=== PATIENT | female | born 1950 | race Asian ===

== ENCOUNTER → 2024-01-13 08:25 | Outpatient (REF) | payer MEDICARE, OTHER, SELFPAY ==
[2024-01-13 08:56] LABS: % Basophils 0.3 % (0-2); % Eosinophils 1.8 % (0-6); % Immature Granulocytes 0.4 % (0-0.5); % Lymphocytes 39.4 % (20.5-51.1); % Monocytes 7.8 % (1.7-9.3); % Neutrophils 50.3 % (42.2-75.2); Absolute Eosinophils 0.1 10^3/uL (0-0.7); Absolute Lymphocytes 2.8 10^3/uL (1.2-3.4); Absolute Monocytes 0.6 10^3/uL (0.1-0.6); Absolute Neutrophils 3.6 10^3/uL (1.4-6.5); Hematocrit 42.2 % (37.0-47.0); Hemoglobin 13.7 g/dL (12.0-16.0); Mean Corp Hgb Conc. 32.5 g/dL (33.0-37.0); Mean Corpuscular Hgb 26.5 pg (27.0-31.0); Mean Corpuscular Volume 81.6 fL (81.0-99.0); Mean Platelet Volume 10.3 fL (7.4-10.4); Nucleated Red Blood Cells % 0 %; Platelet Count 270 10^3/uL (130-400); Red Blood Cell Count 5.17 10^6/uL (4.20-5.40); Red Cell Dist. Width 13.4 % (11.5-14.5); White Blood Cell Count 7.1 10^3/uL (4.8-10.8)
[2024-01-13 09:39] LABS: ALT (SGPT) 15 U/L (0-35); AST (SGOT) 30 U/L (14-36); Albumin 4.5 g/dl (3.5-5.0); Alkaline Phosphatase 65 U/L (38-126); Blood Urea Nitrogen 15 mg/dl (7-17); Calcium 10.1 mg/dl (8.4-10.2); Carbon Dioxide 29 mmol/L (22-30); Chloride 103 mmol/L (98-107); Glucose 95 mg/dl (70-99); HDL Cholesterol 56 mg/dl; LDL Cholesterol, Calculated 127 mg/dl; Potassium 4.4 mmol/L (3.5-5.1); Sodium 143 mmol/L (135-145); Total Bilirubin 0.9 mg/dl (0.2-1.3); Total Cholesterol 202 mg/dl (50-199); Total Protein 7.6 g/dl (6.3-8.2); Triglyceride 95 mg/dl (10-149); Very Low Density Lipoprotein 19 mg/dl (0-30); eGFR > 60.00
[2024-01-13 10:02] LABS: Vitamin D, 25-OH*** 52.5 ng/mL (30-80)
[2024-01-13 10:43] LABS: Glycohemoglobin (HgbA1c) 5.7 % (4.0-5.6)
[2024-01-13 11:41] LABS: Vitamin B12 581 pg/ml (239-931)
== END ==
LOC: REG 08:25
PROVIDERS: ATTENDING PHYSICIAN Nurse Practitioner Primary Care
DX: I11.9 Hypertensive heart disease without heart failure (principal); E78.2 Mixed hyperlipidemia; E55.9 Vitamin D deficiency, unspecified; R73.03 Prediabetes; E03.9 Hypothyroidism, unspecified; E53.8 Deficiency of other specified B group vitamins
CPT/HCPCS: 36415; 80053; 80061; 82306; 82607; 83036; 84443; 85025

== ENCOUNTER → 2024-01-29 13:44 | Outpatient (REF) | payer MEDICARE, OTHER, SELFPAY | LOC: HWWDC 13:44 | PROVIDERS: ATTENDING PHYSICIAN Nurse Practitioner Primary Care | DX: Z12.31 Encounter for screening mammogram for malignant neoplasm of breast (principal); M85.89 Other specified disorders of bone density and structure, multiple sites | CPT/HCPCS: 77063; 77067; 77080 ==

== ENCOUNTER → 2024-05-06 12:12 | Outpatient (REF) | payer MEDICARE, OTHER, SELFPAY ==
[2024-05-06 12:53] LABS: % Basophils 0.3 % (0-2); % Eosinophils 0.8 % (0-6); % Immature Granulocytes 0.2 % (0-0.5); % Lymphocytes 33.6 % (20.5-51.1); % Monocytes 8.5 % (1.7-9.3); % Neutrophils 56.6 % (42.2-75.2); Absolute Eosinophils 0.1 10^3/uL (0-0.7); Absolute Monocytes 0.8 10^3/uL (0.1-0.6); Hemoglobin 14.1 g/dL (12.0-16.0); Mean Corp Hgb Conc. 32.8 g/dL (33.0-37.0); Mean Corpuscular Hgb 27.5 pg (27.0-31.0); Mean Platelet Volume 10.4 fL (7.4-10.4); Nucleated Red Blood Cells % 0 %; Platelet Count 273 10^3/uL (130-400); Red Blood Cell Count 5.12 10^6/uL (4.20-5.40); Red Cell Dist. Width 13.2 % (11.5-14.5); White Blood Cell Count 8.8 10^3/uL (4.8-10.8)
[2024-05-06 13:35] LABS: Blood Urea Nitrogen 16 mg/dl (7-17); Calcium 10.1 mg/dl (8.4-10.2); Carbon Dioxide 28 mmol/L (22-30); Chloride 101 mmol/L (98-107); Glucose 97 mg/dl (70-99); Potassium 4.7 mmol/L (3.5-5.1); Sodium 138 mmol/L (135-145); eGFR > 60.00
== END ==
LOC: REG 12:12
PROVIDERS: ATTENDING PHYSICIAN Orthopaedic Surgery
DX: Z01.818 Encounter for other preprocedural examination (principal)
CPT/HCPCS: 36415; 80048; 85025; 93005

== ENCOUNTER → 2024-05-14 09:14 | Outpatient (REF) | payer MEDICARE, OTHER, SELFPAY | LOC: HWRCS 09:14 | PROVIDERS: ATTENDING PHYSICIAN Internal Medicine Cardiovascular Disease; FAMILY PHYSICIAN Nurse Practitioner Primary Care | DX: R07.89 Other chest pain (principal); R94.31 Abnormal electrocardiogram [ECG] [EKG] | CPT/HCPCS: 93306 ==

== ENCOUNTER → 2024-05-18 11:48 | Outpatient (REF) | payer MEDICARE, OTHER, SELFPAY | LOC: HWRCS 11:48 | PROVIDERS: ATTENDING PHYSICIAN Internal Medicine Cardiovascular Disease; FAMILY PHYSICIAN Nurse Practitioner Primary Care | DX: R07.89 Other chest pain (principal); R94.31 Abnormal electrocardiogram [ECG] [EKG] | CPT/HCPCS: 78452; 93017; A9500; J2785 ==

== ENCOUNTER → 2025-01-11 09:19 | Outpatient (REF) | payer MEDICARE, OTHER, SELFPAY ==
[2025-01-11 10:20] LABS: Hematocrit 41.1 % (37.0-47.0); Hemoglobin 13.9 g/dL (12.0-16.0); Mean Corp Hgb Conc. 33.8 g/dL (33.0-37.0); Mean Corpuscular Volume 79.2 fL (81.0-99.0); Nucleated Red Blood Cells % 0 %; Platelet Count 225 10^3/uL (130-400); Red Cell Dist. Width 13.1 % (11.5-14.5)
[2025-01-11 10:57] LABS: ALT (SGPT) 14 U/L (0-35); AST (SGOT) 28 U/L (14-36); Albumin 4.5 g/dl (3.5-5.0); Alkaline Phosphatase 67 U/L (38-126); Blood Urea Nitrogen 13 mg/dl (7-17); Calcium 10.0 mg/dl (8.4-10.2); Carbon Dioxide 30 mmol/L (22-30); Chloride 104 mmol/L (98-107); Glucose 99 mg/dl (70-99); HDL Cholesterol 57 mg/dl; LDL Cholesterol, Calculated 122 mg/dl; Potassium 4.3 mmol/L (3.5-5.1); Sodium 141 mmol/L (135-145); Total Protein 7.7 g/dl (6.3-8.2); Very Low Density Lipoprotein 15 mg/dl (0-30); eGFR > 60.00
[2025-01-11 11:13] LABS: Vitamin D, 25-OH*** 64.0 ng/mL (30-80)
[2025-01-11 11:31] LABS: Glycohemoglobin (HgbA1c) 5.8 % (4.0-5.6)
[2025-01-12 11:37] LABS: Iron 111 ug/dl (37-170)
[2025-01-12 11:48] LABS: Total Iron Binding Capacity 398 ug/dl (265-497)
[2025-01-12 12:10] LABS: Ferritin 68.3 ng/ml (11.1-264.0)
== END ==
LOC: REG 09:19
PROVIDERS: ATTENDING PHYSICIAN Nurse Practitioner Primary Care
DX: I11.9 Hypertensive heart disease without heart failure (principal); E78.2 Mixed hyperlipidemia; R93.1 Abnormal findings on diagnostic imaging of heart and coronary circulation; R73.03 Prediabetes; E55.9 Vitamin D deficiency, unspecified; M85.89 Other specified disorders of bone density and structure, multiple sites; R71.8 Other abnormality of red blood cells
CPT/HCPCS: 36415; 80053; 80061; 82306; 82728; 83036; 83540; 83550; 84443; 85025